=== PATIENT | male | born 1970 | race Caucasian/White ===

== ENCOUNTER 2017-12-12 11:50 | Emergency (ER) | payer OTHER ==
[~2017-12-12] VITALS: Ht 175.3 cm; Wt 108.9 kg
[~2017-12-12 11:50] MED LIST: FISH OIL CONC1000 MG PO; FLORASTOR250 MG PO; GLUCOSAMINE & C1 CAP PO; LISINOPRIL20 MG PO; MULTIVITAMIN1 TAB PO; OXYCODONE HYDRO20 M1 PO; PRILOSEC40 MG PO; VITAMIN B COMPL1 CAP PO; VITAMIN D31000 IU PO
--- NOTE | 2017-12-12 12:17 | ED AMS/SEIZURE/WEAK/DIZZY ---
History of Present Illness General Chief Complaint: General Adult Stated Complaint: LIGHTHEADED X 2WKS, PINS AND NEEDLES IN ARMS/LEGS Source: patient Exam Limitations: no limitations Vital Signs & Intake/Output Vital Signs & Intake/Output Vital Signs Date Time Temp Pulse Resp B/P B/P Pulse O2 O2 Flow FiO2 Mean Ox Delivery Rate 12/12 1353 97.1 56 16 117/75 98 Room Air 12/12 1245 71 106/77 12/12 1242 98 Room Air 12/12 1201 98.2 72 16 137/90 98 Room Air Allergies Coded Allergies: NO KNOWN ALLERGIES (03/30/12) Reconcile Medications Testosterone Cypionate 200 MG/ML VIAL 1 ML IM Q2W HRT (Reported) Triage Note: PT STATES THAT THE LAST 2 WEEKS HE HAS BEEN VERY LIGHT HEADED AND NUMBNESS/TINGLING IN HIS FINGERS AND TOES. PT STATES THAT HE HAS LEFT SHOULDER PAIN 3/10. PT HAS HX OF HTN, AFIBB. PT DENIES PALPITATIONS AND CHEST PAIN. Triage Nurses Notes Reviewed? yes Onset: Abrupt Duration: week(s): (3-4) Timing: recent history Injury Environment: home Severity: mild, moderate Modifying Factors: Worsens With: other (GETTING UP AT NIGHT). HPI: This is a 47-year-old male with history of hypertension, A. fib diagnosed last year on lisinopril metoprolol and Norvasc presents to the ER with chief complaint one month worth of dizziness specifically at night and occasionally during the day. He states he feels slightly off balance. No headache or blurred vision. No chest pain or short of breath. No recent change in medications except he took himself off and estrogen decreasing medication approximately one week ago but states his symptoms are still same. He initially thought it was secondary to the medication that he was feeling dizzy. He normally rests in a sinus rhythm and hasn't had an episode of A. fib since diagnosis. He does follow up with Dr. Ed Ding. No anticoagulation medication this time he was on Xarelto for approximately a month after the episode. Past History Travel History Traveled to [place] past 21 day No Medical History Any Pertinent Medical History? see below for history Neurological: NONE EENT: NONE Cardiovascular: AFIB, hypertension Respiratory: NONE Gastrointestinal: NONE Hepatic: NONE Renal: NONE Musculoskeletal: NONE Psychiatric: NONE Endocrine: NONE Blood Disorders: NONE Cancer(s): NONE EXPERIENCE DESIGNER/Reproductive: NONE Surgical History Surgical History: N Psychosocial History Who do you live with Spouse Services at Home NONE What is your primary language Mauritian Tobacco Use: Current Not Daily Family History Hx Contributory? No Review of Systems Review of Systems Constitutional: Denies: chills, fever. EENTM: Reports: no symptoms. Respiratory: Denies: cough, short of breath, sputum production. Cardiovascular: Denies: chest pain, palpitations. GI: Reports: see HPI (POOR FLUID INTAKE). Denies: abdominal pain, nausea, vomiting. Genitourinary: Reports: no symptoms. Musculoskeletal: Reports: no symptoms. Skin: Reports: no symptoms. Neurological/Psychological: Reports: no symptoms. Hematologic/Endocrine: Denies: bruising, bleeding, polyuria, polydipsia. Immunologic/Allergic: Denies: splenectomy. All Other Systems: Reviewed and Negative Physical Exam Physical Exam General Appearance: well developed/nourished, alert, awake Head: atraumatic, normal appearance Eyes: Bilateral: normal appearance, PERRL, EOMI. Ears, Nose, Throat: normal pharynx, normal ENT inspection, hearing grossly normal Neck: normal inspection, supple, full range of motion Respiratory: normal breath sounds, chest non-tender, no respiratory distress Cardiovascular: regular rate/rhythm, normal peripheral pulses Peripheral Pulses: 2+ radial (R), 2+ radial (L) Gastrointestinal: normal bowel sounds, soft, non-tender Extremities: normal range of motion Neurologic/Psych: no motor/sensory deficits, awake, alert, oriented x 3, normal gait Skin: intact, normal color, warm/dry Core Measures ACS in differential dx? Yes CVA/TIA Diagnosis No Sepsis Present: No Sepsis Focused Exam Completed? No Progress Differential Diagnosis: arrythmia, anemia, benign positional vertigo, CVA/stroke , dehydration, encephalitis, electrolyte imbalance, postural hypotension, HYPOTENSION, MEDICATION SIDE EFFECT Plan of Care: Orders Procedure Date/time Status Heart Healthy Diet 12/12 D Active LACTIC ACID 12/12 1517 Active Add-on Test (ER Only) 12/12 1247 Active Telemetry/Heat Sealing Machine Operator 12/12 1247 Active URINE DRUGS OF ABUSE 12/12 1247 Complete URINALYSIS 12/12 1217 Complete THYROID STIMULATING HORMONE 12/12 1217 Complete TROPONIN LEVEL 12/12 1217 Complete PARTIAL THROMBOPLASTIN TIME 12/12 1217 Complete PROTHROMBIN TIME 12/12 1216 Complete LACTIC ACID 12/12 1216 Complete FREE T4 12/12 1216 Complete COMPREHENSIVE METABOLIC PANEL 12/12 1216 Complete CBC WITHOUT DIFFERENTIAL 12/12 1216 Complete EKG 12/12 1200 Active Laboratory Tests 12/12/17 1416: Urine Opiates Screen < 100, Methadone Screen < 40, Barbiturate Screen < 60, Ur Phencyclidine Scrn < 6.00, Amphetamines Screen < 100, U Benzodiazepines Scrn 86, Urine Cocaine Screen < 50, Urine Cannabis Screen < 5.00, Urinalysis MOD H, Urine Color YEL, Urine Clarity HAZY H, Urine pH 7.5, Ur Specific [place] 1.020, Urine Protein TRACE H, Urine Ketones NEG, Urine Nitrite NEG, Urine Bilirubin NEG, Urine Urobilinogen 0.2, Ur Leukocyte Esterase NEG, Ur Microscopic SEDIMENT EXAMINED, Urine WBC RARE, Ur Epithelial Cells RARE, Urine Bacteria MOD H, Urine Mucus RARE, Urine Hemoglobin NEG, Urine Glucose NEG 12/12/17 1340: PT 11.1, INR 1.02, APTT 29 12/12/17 1258: Anion Gap 13, Estimated GFR > 60, BUN/Creatinine Ratio 11.3, Glucose 108 H, Lactic Acid 1.3, Calcium 10.0, Total Bilirubin 0.7, AST 27, ALT 53, Alkaline Phosphatase 54, Troponin I < 0.01, Total Protein 7.7, Albumin 4.6, Globulin 3.1, Albumin/Globulin Ratio 1.5, TSH 1.180, Free T4 0.85, CBC w Diff NO MAN DIFF REQ, RBC 4.47 L, MCV 97.8 H, MCH 32.9 H, MCHC 33.7, RDW 14.0, MPV 9.3, Gran % 60.9 , Lymphocytes % 27.8, Monocytes % 7.6, Eosinophils % 3.4, Basophils % 0.3, Absolute Granulocytes 4.0, Absolute Lymphocytes 1.8, Absolute Monocytes 0.5, Absolute Eosinophils 0.2, Absolute Basophils 0 Initial ED EKG: NSR Departure Departure Time of Disposition: 1531 Disposition: HOME OR SELF CARE Condition: Stable Clinical Impression Primary Impression: Dizziness Referrals: Giuliano MARINO,Bk Rollins (PCP/Family) Additional Instructions: FOLLOW UP WITH DR BARRETO IN THE OFFICE THIS WEEK MAKE SURE TO DRINK PLENTY OF FLUIDS FOLLOW UP WITH YOUR DOCTOR IN THE OFFICE RETURN TO THE ER FOR ANY CHANGING OR WORSENING SYMPTOMS Departure Forms: Customer Survey General Discharge Information
[2017-12-12 13:19] LABS: ABSOLUTE BASOPHIL COUNT 0 /CUMM (0.0-0.2); ABSOLUTE EOSINOPHIL COUNT 0.2 /CUMM (0.0-0.7); ABSOLUTE LYMPH COUNT 1.8 /CUMM (1.2-3.4); ABSOLUTE MONOCYTE COUNT 0.5 /CUMM (0.10-0.60); BASOPHIL % 0.3 % (0.0-2.0); EOSINOPHIL % 3.4 % (0-5); GRANULOCYTE % 60.9 % (42.2-75.2); HEMATOCRIT 43.6 % (42-52); MEAN CORPUSCULAR HGB 32.9 PG (27.0-31.0); MEAN CORPUSCULAR HGB CONC 33.7 G/DL (33.0-37.0); MEAN CORPUSCULAR VOLUME 97.8 FL (80.0-94.0); MEAN PLATELET VOLUME 9.3 FL (7.4-10.4); PLATELET COUNT 284 /CUMM (130-400); RED BLOOD CELL CT 4.47 /CUMM (4.70-6.10); WHITE BLOOD CELL COUNT 6.5 /CUMM (4.8-10.8)
[2017-12-12] MEDS ORDERED: TESTOSTERO200 MG/1 M IM (13:27)
[2017-12-12 13:58] LABS: PT 11.1 SEC (9.4-12.5); PTT 29 SEC (25-37)
[2017-12-12 15:42] VITALS: BP 120/66
== END 2017-12-12 15:43 ==
LOC: ERH 11:50
PROVIDERS: Emergency Medicine
DX: R42 Dizziness and giddiness (principal)
CPT/HCPCS: 80307; 81001; 93005; 93010